=== PATIENT | male | born 1985 | race American Indian/Alaskan Native ===

== ENCOUNTER 2022-02-07 10:26 | Emergency (ER) | payer BC, MEDICAID ==
[~2022-02-07] VITALS: Ht 165.1 cm; Wt 68.2 kg
[~2022-02-07 10:26] MED LIST: NO HOME MEDS
[2022-02-07] MEDS ORDERED: vancomycin/NS 1 GM ADD-VANTAGE 250 ML IV ONE (12:10)
[2022-02-07 12:25] LABS: BASOPHILS # (AUTO) 0.1 X10'3 (0-0.2); BASOPHILS % (AUTO) 0.7 % (0-1); EOSINOPHILS % (AUTO) 0.3 % (0-6); HEMATOCRIT 42.5 % (42.0-52.0); HEMOGLOBIN 14.2 g/dl (14.0-17.9); LYMPHOCYTES % (AUTO) 12.7 % (21-51); MEAN CORPUSCULAR HGB CONC 33.3 g/dL (33.0-36.5); MEAN CORPUSCULAR VOLUME 86.9 FL (78-98); MEAN PLATELET VOLUME 7.6 FL (7.4-10.4); MONOCYTES # (AUTO) 0.7 X10'3 (0-0.9); MONOCYTES % (AUTO) 9.6 % (2-12); NEUTROPHILS # (AUTO) 5.8 X10'3 (1.8-7.7); NEUTROPHILS % (AUTO) 76.7 % (42-75); PLATELET COUNT 357 X10'3 (140-440); RED BLOOD COUNT 4.89 X10'6 (4.70-6.10); RED CELL DISTRIBUTION WIDTH 13.4 % (11.5-14.5); WHITE BLOOD COUNT 7.6 X10'3 (4.5-11.0)
[2022-02-07 12:39] LABS: ALANINE AMINOTRANSFERASE 73 U/L (12-78); ALBUMIN/GLOBULIN RATIO 1.2 (1.1-1.5); ALKALINE PHOSPHATASE 62 IU/L (46-116); ANION GAP 10 (8-16); ASPARTATE AMINO TRANSFERASE 52 U/L (10-37); BILIRUBIN,TOTAL 1.3 MG/DL (0.1-1.0); BLOOD UREA NITROGEN 14 MG/DL (7-18); BUN/CREATININE RATIO 13.2 (5.4-32.0); CHLORIDE 101 MMOL/L (99-107); CREATININE 1.06 MG/DL (0.60-1.10); ETHANOL < 0.010 GM/DL (0.0-0.010); GLUCOSE 97 MG/DL (70-104); POTASSIUM 3.9 MMOL/L (3.5-5.1); SODIUM 137 MMOL/L (135-145); TOTAL CARBON DIOXIDE 26.1 MMOL/L (24-32); TOTAL PROTEIN 7.4 G/DL (6.4-8.2); eGFR 80 ML/MIN
[2022-02-07 16:31] LABS: URINE AMPHETAMINE SCREEN POSITIVE (Neg); URINE BARBITUATE SCREEN NEGATIVE (Neg); URINE BENZODIAZEPINES SCREEN NEGATIVE (Neg); URINE CANNABINOID SCREEN POSITIVE (Neg); URINE COCAINE SCREEN NEGATIVE (Neg); URINE METHADONE SCREEN NEGATIVE (Neg); URINE OPIATE SCREEN NEGATIVE (Neg); URINE PHENCYCLIDINE SCREEN NEGATIVE (Neg)
[2022-02-07 17:01] LABS: CLARITY,URINE CLEAR (Clear); COLOR,URINE YELLOW (Yellow); GLUCOSE, URINE NEGATIVE (Neg); KETONES,URINE 40 mg/dl (Neg); LEUKOCYTE ESTERASE ,URINE NEGATIVE (Neg); NITRITES, URINE NEGATIVE (Neg); OCCULT BLOOD,URINE NEGATIVE (Neg); PROTEIN,URINE NEGATIVE (Neg); UA COLLECTION TYPE URINAL
--- NOTE | 2022-02-07 18:30 | NUR ---
Patient lying on his bed watching the nurses station. No distress noted.
--- NOTE | 2022-02-07 19:45 | NUR ---
Patient c/o mist that smells like chemicals coming through the vents. He states that he can't breathe because of this mist that is only in his bed space. Patient will not follow directions to remain in his room. Security here to help manage situation.
--- NOTE | 2022-02-07 20:45 | NUR ---
Patient again out of his room. He now complains that his bandages on foot are wet, but they are not. He is also again claiming mist coming from vents, and he is getting agitated. MD Simpson orders Ativan 2mg and Benadryl 50 mg PO. Security here again. Patient keeps playing games and playing hide and seek with the medications. He has, with security monitoring, finally swallowed all of them.
[2022-02-07] MEDS ORDERED: LORazepam 1 MG tablet PO ONE (21:00)
[2022-02-07] MEDS ORDERED: diphenhydrAMINE 25mg capsule PO ONE (21:00)
[2022-02-07] MEDS: cephalexin 250mg capsule PO SCH (21:06)
--- NOTE | 2022-02-07 21:43 | NUR ---
Patient lying quietly on his bed. He appears to be asleep. No s/sx of distress.
--- NOTE | 2022-02-08 | NUR ---
Patient sleeping in supine position. No s/sx of distress.
--- NOTE | 2022-02-08 01:53 | NUR ---
Patient sleeping on his right side. breathing unlabored. No signs of distress.
--- NOTE | 2022-02-08 03:09 | NUR ---
Patient up to the bathroom to clean himself. Now back in bed.
--- NOTE | 2022-02-08 04:18 | NUR ---
The patient appears to be sleeping
--- NOTE | 2022-02-08 05:39 | NUR ---
Patient awake for vitals. Denies needs.
[2022-02-08] MEDS ORDERED: cephalexin 250mg capsule PO ONE (06:15)
--- NOTE | 2022-02-08 10:20 | NUR ---
PT MOVED FROM RM 16 OF MAIN ER TO RM 21. PT ATE ALL OF HIS BREAKFAST AND TOOK HIS FIRST DOSE OF KEFLEX. PT STATES HES FEELING "FINE."
[2022-02-08] MEDS ORDERED: CEPH-585 PO (11:01)
--- NOTE | 2022-02-08 11:16 | NUR ---
Pt laying on right lateral side. Eyes closed, respirations even and unlabored. Received pt's discharge paperwork, awaiting transportation via pt's chief fundraising officer.
[2022-02-08] MEDS: cephalexin 250mg capsule PO SCH (11:34)
[2022-02-08 12:01] VITALS: BP 128/80
== END 2022-02-08 12:09 | disposition home or self-care (01) ==
LOC: ER 10:26
DX: R45.851 Suicidal ideations (principal); L03.115 Cellulitis of right lower limb; Z20.822 Contact with and (suspected) exposure to COVID-19; F32.A Depression, unspecified; J45.909 Unspecified asthma, uncomplicated; F12.10 Cannabis abuse, uncomplicated; F17.200 Nicotine dependence, unspecified, uncomplicated
CPT/HCPCS: 36415; 80053; 80305; 80320; 81003; 83605; 85025; 87040; 87635; 96365; 96366; 99285; C9803; J3370; Q0163

== ENCOUNTER 2022-02-12 13:40 | Inpatient (IN) | payer MEDICAID ==
[~2022-02-12] VITALS: Ht 165.1 cm; Wt 74.3 kg
[~2022-02-12 13:40] MED LIST changes: +CEPH-585 PO
[2022-02-12] MEDS ORDERED: NICOTINE POLACRILEX 2 MG LOZENGE BC PRN (15:00)
[2022-02-12] MEDS ORDERED: loperamide 2mg capsule PO PRN (15:00)
[2022-02-12] MEDS ORDERED: magnesium hydroxide 30ml (MOM) UD suspension PO PRN (15:00)
[2022-02-12] MEDS ORDERED: acetaminophen 325mg tablet PO PRN ×2 (15:00)
[2022-02-12] MEDS ORDERED: CEPH-585 PO (16:41)
--- NOTE | 2022-02-12 16:45 | NUR ---
Admit note: Pt admitted today from [facility] on for psychosis on a 5150 for DTO at 1545. Pt disclosed he is feeling pressure and like a ticking time bomb and might hurt someone. He states he doesn't care about the consequences or what happens to him. Has paranoia that people are following him. Pt has no diagnosed mental health.
[2022-02-12] MEDS: cephalexin 500mg capsule PO SCH (20:08)
[2022-02-12 20:14] VITALS: BP 120/71
[2022-02-12] MEDS: traZODone 50mg tablet PO PRN (21:31)
--- NOTE | 2022-02-13 03:55 | NUR ---
Nursing Progress Note: Problem : Pt admitted from [facility] on for psychosis on a 5150 for DTO at 1545. Pt disclosed he is feeling pressure and like a ticking time bomb and might hurt someone. He states he doesn't care about the consequences or what happens to him. Has paranoia that people are following him. Pt has no diagnosed mental health. Interventions : Maintained a safe and supportive environment, ensured contract for safety, provided clear and simple instructions, attempted to orient to reality, monitored behaviors and provided redirection as needed, and maintained Q 15nmin safety checks. Response : Patient was seen in the group room for 1:1. He reports that he's still feeling a little paranoid that people are out to get him. Patient has had a rough life of foster homes, homelessness, incarcerations, and abandonment. He has already had a lot of consequences not of his doing. It's understandable that he might do things with no thought of what happens to him. Patient reports that he doesn't know why he's here, but he still feels like something is going to happen. Patient continues to take Keflex for his wounded foot. He came out after trying to sleep and requested Trazodone, which was effective at getting him to sleep. Plan : Patient does not have a viable plan for discharge at this time. He continues to require a safe and supportive environment and medication adjustments.
[2022-02-13 07:01] LABS: CHOLESTEROL 163 MG/DL (0-200); HDL CHOLESTEROL 54 MG/DL (35-60); LDL CHOLESTEROL 87 MG/DL (50-100); TRIGLYCERIDES 91 MG/DL (20-135)
[2022-02-13 07:07] LABS: HEMOGLOBIN A1C 5.8 % (4.5-6.2)
[2022-02-13] MEDS: cephalexin 500mg capsule PO SCH ×2 (07:24→20:08)
[2022-02-13 08:05] VITALS: BP 114/50
--- NOTE | 2022-02-13 10:01 | NUR ---
Pt. attended group today. Todays group was about the difference between Growth Mindset vs. Fixed Mindset. We learned about the differences and then discussed what aspect of developing a growth mindset they wanted to work on. Pt. engaged in the group appropriately. His demeanor was calm, compliant and pleasant to work with. His thought content and thought process appeared WNL. He seemed to enjoy the socialization in the group setting. He showed good insight into his mental illness when he shared about the things he wants to work on to grow his growth mindset and the things he needs to let go of to obtain these goals. He reported that he often sabotages himself because he fears being successful. He reported that he spent much of his life trying not to rise above the radar as a way to survive. He would like to change this and work toward succeeding at something. He was alert and oriented X 4. Jesika Phillips LCSW
--- NOTE | 2022-02-13 13:24 | NUR ---
Nursing Progress Note: Problem : Pt admitted from [facility] on for psychosis on a 5150 for DTO at 1545. Pt disclosed he is feeling pressure and like a ticking time bomb and might hurt someone. He states he doesn't care about the consequences or what happens to him. Has paranoia that people are following him. Pt has no diagnosed mental health. Interventions : Maintained a safe and supportive environment, provided clear and simple instructions, monitored behaviors and provided redirection as needed, and maintained Q 15nmin safety checks. Response : Patient was seen in the group room for 1:1. He reports that he's still feeling a little paranoid that people are out to get him. Pt interacts appropriately with other pts and staff. Pt spends most of day in the group room interacting or watching TV or coloring/drawing. PT seen by hospitalist and prescribed Lamisil cream for R foot. Plan : Patient does not have a viable plan for discharge at this time. He continues to require a safe and supportive environment and medication adjustments.
[2022-02-13 20:00] VITALS: BP 111/63
[2022-02-13] MEDS: traZODone 50mg tablet PO PRN (20:08)
[2022-02-13] MEDS: terbinafine cream 30gm TP SCH (20:12)
[2022-02-13] MEDS: prazosin 1mg capsule PO SCH (20:58)
--- NOTE | 2022-02-14 02:28 | NUR ---
Nursing Progress Note: Problem : Pt admitted from [facility] for psychosis on a 5150 for DTO. Pt disclosed he is feeling pressure and like a ticking time bomb and might hurt someone. He states he doesn't care about the consequences or what happens to him. Has paranoia that people are following him. Pt has no diagnosed mental health illness. Interventions : Maintained a safe and supportive environment, ensured contract for safety, provided clear and simple instructions, attempted to orient to reality, monitored behaviors and provided redirection as needed, and maintained Q 15 min. safety checks. Response : Patient seen for 1:1 assessment in the community room. He appears clean and is maintaining his personal hygiene. Patient contracts for safety and assures he will do no harm while here. He has n/o for antifungal to his feet. He chose to administer it himself. Patient also has n/o for Prazosin due to past traumas and nightmares. He also requested Trazodone for sleep that is effective aeb sleeping at this time. Plan : Patient does not have a viable plan for discharge at this time. He continues to require a safe and supportive environment and medication adjustments.
[2022-02-14 07:30] VITALS: BP 110/50
[2022-02-14] MEDS: cephalexin 500mg capsule PO SCH ×2 (08:39→20:08)
[2022-02-14] MEDS: ESCITALOPRAM OXALATE 5 MG TABLET PO SCH (08:39)
[2022-02-14] MEDS: terbinafine cream 30gm TP SCH ×2 (08:43→20:00)
--- NOTE | 2022-02-14 15:37 | NUR ---
Nursing Progress Note: Problem : Pt admitted from [facility] on for psychosis on a 5150 for DTO at 1545. Pt disclosed he is feeling pressure and like a ticking time bomb and might hurt someone. He states he doesn't care about the consequences or what happens to him. Has paranoia that people are following him. Pt has no diagnosed mental health. Interventions : Maintained a safe and supportive environment, provided clear and simple instructions, monitored behaviors and provided redirection as needed, and maintained Q 15nmin safety checks. Response : Pt reports that he's still feeling a little paranoid that people are out to get him. Pt interacts appropriately with other pts and staff. Pt spends most of day in the group room interacting or watching TV or coloring/drawing. Plan : Patient does not have a viable plan for discharge at this time. He continues to require a safe and supportive environment and medication adjustments.
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
[2022-02-14 20:00] VITALS: BP 123/65
[2022-02-14] MEDS: QUEtiapine 25mg tablet PO SCH (20:04)
[2022-02-14] MEDS: prazosin 1mg capsule PO SCH (20:04)
[2022-02-14] MEDS: traZODone 50mg tablet PO PRN (20:12)
--- NOTE | 2022-02-15 01:54 | NUR ---
Nursing Progress Note: Problem : Pt admitted from [facility] for psychosis on a 5150 for DTO. Pt disclosed he is feeling pressure and like a ticking time bomb and might hurt someone. He states he doesn't care about the consequences or what happens to him. Has paranoia that people are following him. Pt has no diagnosed mental health illness. Interventions : Maintained a safe and supportive environment, ensured contract for safety, provided clear and simple instructions, attempted to orient to reality, monitored behaviors and provided redirection as needed, and maintained Q 15 min. safety checks. Response : Patient spent the night in the community room coloring and watching TV. He continues to report feelings that someone is after him. He starts Seroquel tonight which may help with these feelings. Patient's foot is getting better, even though he has thickly calloused skin on bottom and sides. Patient is calm and cooperative with staff and clients. Plan : Patient does not have a viable plan for discharge at this time. He continues to require a safe and supportive environment and medication adjustments.
[2022-02-15 08:00] VITALS: BP 108/63
[2022-02-15] MEDS: cephalexin 500mg capsule PO SCH ×2 (08:00→20:25)
[2022-02-15] MEDS: ESCITALOPRAM OXALATE 5 MG TABLET PO SCH (08:00)
[2022-02-15] MEDS: terbinafine cream 30gm TP SCH ×2 (08:00→20:26)
--- NOTE | 2022-02-15 11:32 | NUR ---
[facility] RE[facility] Completed and sent [facility] referral. Will check in with [facility] regarding an interview time and date. NARDA Calvert
--- NOTE | 2022-02-15 11:33 | NUR ---
Kiki, Substance Use Navigator, called [facility] and [facility] and was informed that they do not take people who are 290 registrants or arsonists. She was also informed that [facility] does not allow any of their recover programs to accept that population. NARDA Calvert
--- NOTE | 2022-02-15 16:53 | NUR ---
Nursing Progress Note: Problem : Pt admitted from [facility] for psychosis on a 5150 for DTO. Pt disclosed he is feeling pressure and like a ticking time bomb and might hurt someone. He states he doesn't care about the consequences or what happens to him. Has paranoia that people are following him. Pt has no diagnosed mental health illness. Interventions : Maintained a safe and supportive environment, ensured contract for safety, provided clear and simple instructions, attempted to orient to reality, monitored behaviors and provided redirection as needed, and maintained Q 15 min. safety checks. Response : Pt. asleep at start of shift. Pt. awoke for breakfast and took all medications. Pt. went back to sleep. Lamasil ointment applied to pt.'s foot. Pt. encouraged to shower and did so. 1:1 done at bedside, pt. denies all psych symptoms, states, "I'm good". Pt. gives minimal information during 1:1 interview. Plan : Patient does not have a viable plan for discharge at this time. He continues to require a safe and supportive environment and medication adjustments.
[2022-02-15 20:00] VITALS: BP 121/61
[2022-02-15] MEDS: QUEtiapine 25mg tablet PO SCH (20:25)
[2022-02-15] MEDS: prazosin 1mg capsule PO SCH (20:25)
[2022-02-15] MEDS: traZODone 50mg tablet PO PRN (20:36)
--- NOTE | 2022-02-16 04:46 | NUR ---
Nursing Progress Note: Problem : Pt admitted from [facility] for psychosis on a 5150 for DTO. Pt disclosed he is feeling pressure and like a ticking time bomb and might hurt someone. He states he doesn't care about the consequences or what happens to him. Has paranoia that people are following him. Pt has no diagnosed mental health illness. Interventions : Maintained a safe and supportive environment, ensured contract for safety, provided clear and simple instructions, attempted to orient to reality, monitored behaviors and provided redirection as needed, and maintained Q 15 min. safety checks. Response : Patient is visible on the unit and is cooperative and polite when interacting with staff. He is seen socializing with his roommate. Patient's foot is improving, he does report some itching, scheduled cream applied. PT denies SI/HI/AH/VH at this time. Plan : Patient does not have a viable plan for discharge at this time. He continues to require a safe and supportive environment and medication adjustments.
--- NOTE | 2022-02-16 07:19 | NUR ---
Initial: Pt admitted w/ major depressive disorder per EMR. Currently on Regular diet w/ mostly 100% intake of meals meeting needs at this time. LBM 02/15 receiving PRN bowel care. No nutrition intervention implemented at this time, will continue to monitor. Recs: 1. Continue Regular diet as tolerated 2. Bowel care PRN 3. Weekly wts Addendum: 02/16/22 at [address] Amended: Links added.
[2022-02-16 08:00] VITALS: BP 115/54
[2022-02-16] MEDS: terbinafine cream 30gm TP SCH ×2 (08:00→20:02)
--- NOTE | 2022-02-16 08:20 | NUR ---
[facility] INTERVIEW 3:30 TODAY Brody from [facility] will interview Raheel at 3:30 today. NARDA Calvert
[2022-02-16] MEDS: ESCITALOPRAM OXALATE 5 MG TABLET PO SCH (08:30)
[2022-02-16] MEDS: cephalexin 500mg capsule PO SCH ×2 (08:30→19:44)
--- NOTE | 2022-02-16 17:13 | NUR ---
Nursing Progress Note: Raheel Flor Problem: Pt admitted from [facility] for psychosis on a 5150 for DTO. Pt disclosed he is feeling pressure and like a ticking time bomb and might hurt someone. He states he doesn't care about the consequences or what happens to him. Has paranoia that people are following him. Pt has no diagnosed mental health illness. Pt. denies SI, HI, and presents as guarded during assessment. Pt. observed both isolative behavior and minimal social skills with cohorts. Interventions: Maintained a safe and supportive environment, ensured contract for safety, provided clear and simple instructions, attempted to orient to reality, monitored behaviors and provided redirection as needed. Medications administration, Tx completed per order. Response: Patient reports his plan is to check in with parole and Mental Health on [facility] when I get out He was receptive to accepting his medications and the treatment to his foot. He denies GI upset d/t on going ABX. Plan : Patient does not have a viable plan for discharge at this time. He continues to require a safe and supportive environment and medication adjustments. Maintained Q 15 min. safety checks
[2022-02-16] MEDS: QUEtiapine 25mg tablet PO SCH (19:44)
[2022-02-16] MEDS: prazosin 1mg capsule PO SCH (19:45)
[2022-02-16] MEDS: traZODone 50mg tablet PO PRN (19:55)
[2022-02-16 19:56] VITALS: BP 111/68
--- NOTE | 2022-02-17 03:50 | NUR ---
Nursing Progress Note: P: Pt was admitted to [facility] for DTO and described feeling like a ticking time bomb and felt like he might hurt someone. He was feeling paranoid and anxious. I: 1:1 assessment with pt, assess pts mood and outlook on his current situation. Monitor for any psychosis/paranoia. Administer medications as scheduled. Assess R foot. R: Pt is visible on the unit, he watched a movie in the community room with peers while eating snack. He is polite with staff and cooperative with [facility] and takes all scheduled medications. He denies SI/HI/AH/VH at this time. He states he is feeling pretty good.Pt makes good eye contact and smiles. No internal occupation observed or reported. He reports his R foot is improving, cream applied HS. Pt requests PRN trazodone for sleep which is given to him with good effect. P: Continue to monitor patients progress and prepare pt for discharge to [facility] which is scheduled tentatively for 02/21/22.
[2022-02-17] MEDS: ESCITALOPRAM OXALATE 5 MG TABLET PO SCH (07:52)
[2022-02-17] MEDS: cephalexin 500mg capsule PO SCH ×2 (07:52→20:13)
[2022-02-17 08:00] VITALS: BP 110/59
[2022-02-17] MEDS: terbinafine cream 30gm TP SCH ×2 (08:00→20:18)
--- NOTE | 2022-02-17 08:22 | NUR ---
ACCEPTED AT [facility] Called Armando at [facility] and confirmed that Raheel has been accepted. They can take him on pending a nurse to nurse (concerns about his feet). His medications will need to be finalized and send to Brennan Garvey today in order for delivery on since it is a holiday weekend. NARDA Calvert
[2022-02-17] MEDS ORDERED: ESCI-8 PO (16:05)
[2022-02-17] MEDS ORDERED: PRAZ1CAP5 PO (16:05)
[2022-02-17] MEDS ORDERED: NICO-907 BC (16:05)
[2022-02-17] MEDS ORDERED: CEPH-585 PO (16:05)
[2022-02-17] MEDS ORDERED: QUET100T34 PO (16:05)
[2022-02-17] MEDS ORDERED: TERB30CR8 TP (16:05)
[2022-02-17] MEDS ORDERED: tuberculin, purif. prot. deriv. 5 units/0.1ml ID PRN (16:05)
--- NOTE | 2022-02-17 17:34 | NUR ---
Nursing Progress Note: Raheel Flor Problem: Pt admitted from [facility] for psychosis on a 5150 for DTO. Pt disclosed he is feeling pressure and like a ticking time bomb and might hurt someone. He states he doesn't care about the consequences or what happens to him. Has paranoia that people are following him. Pt has no diagnosed mental health illness. Pt. continues to self-isolate from cohorts and engages minimally with others. Interventions: Maintained a safe and supportive environment, ensured contract for safety, provided clear and simple instructions, attempted to orient to reality, monitored behaviors and provided redirection as needed. Medications administration, Tx completed per order. Response: Pt. denies SI, HI, presents as guarded during assessment reports Im going to [facility] He was receptive to accepting his medications and the treatment to his foot. He denies GI upset d/t on going ABX. Plan : He continues to require a safe and supportive environment and medication adjustments. Maintained Q 15 min. safety checks
[2022-02-17 20:00] VITALS: BP 123/81
[2022-02-17] MEDS: QUEtiapine 25mg tablet PO SCH (20:12)
[2022-02-17] MEDS: traZODone 50mg tablet PO PRN (20:13)
[2022-02-17] MEDS: prazosin 1mg capsule PO SCH (20:13)
--- NOTE | 2022-02-18 00:05 | NUR ---
Nursing Progress Note: P: Pt was admitted to [facility] for DTO and described feeling like a ticking time bomb and felt like he might hurt someone. He was feeling paranoid and anxious. I: 1:1 assessment with pt, assess pts mood and outlook on his current situation. Monitor for any psychosis/paranoia. Administer medications as scheduled. Assess R foot. R: Pt is observed walking the unit with a smile on his face, making good eye contact with staff and peers. He engages in conversation with his roommate as they walk together, laughing at times. Pt engages with staff as well and appears to be upbeat. He denies AH/VH/SI/HI. Right foot continues to improve pt reports, cream applied HS. Pt requests PRN trazodone for sleep which is given to him with good effect. P: Continue to monitor patients progress and prepare pt for discharge to [facility] which is scheduled tentatively for 02/21/22.
[2022-02-18] MEDS: terbinafine cream 30gm TP SCH ×2 (08:00→20:50)
[2022-02-18] MEDS: ESCITALOPRAM OXALATE 5 MG TABLET PO SCH (08:18)
[2022-02-18 08:43] VITALS: BP 107/59
--- NOTE | 2022-02-18 17:10 | NUR ---
Nursing Progress Note: Problem: Patient is admitted to [facility] with Suicidal, with Depression and PTSD. Patient is currently here on a Voluntary basis due to Danger to Others. During a Patient Interview, he states Im trying to not make the same mistakes over and over, so Im staying here to get on the right track. Patient watched TV in the Community Room Intervention: Patient Assessment and 1:1 Physical Assessment completed. Provider continues to provide patient with a safe and therapeutic environment, clear communication, active listening and positive encouragement. Response: Patient ambulated in the hallway and sat up in the Community Room watching the TV. Patient ate his meals, and ate snacks at 1100 & 1500. Patient took medications without hesitation, and received Lamisal application to his right foot. Patient states My foot looks so much better than a week ago. Patient has a large area of cracked dry skin on the bottom of his right foot, and has cracked dry areas between his toes and in the joints of his toes. Plan: Plan is for patient to discharge to [facility] on Sunday. Patient will continue with medication management and monitoring in a safe & therapeutic environment.
[2022-02-18 19:55] VITALS: BP 115/58
[2022-02-18] MEDS: QUEtiapine 25mg tablet PO SCH (20:46)
[2022-02-18] MEDS: prazosin 1mg capsule PO SCH (20:46)
[2022-02-18] MEDS: traZODone 50mg tablet PO PRN (20:47)
--- NOTE | 2022-02-19 01:26 | NUR ---
Nursing Progress Note: Problem: Patient is admitted to [facility] with Suicidal, with Depression and PTSD. Patient is currently here on a Voluntary basis due to Danger to Others. During a Patient Interview, he states Im trying to not make the same mistakes over and over, so Im staying here to get on the right track. Intervention: Patient Assessment and 1:1 Physical Assessment completed. Provider continues to provide patient with a safe and therapeutic environment, clear communication, active listening and positive encouragement. Response: Pt in Rec room charging his ankle bracelet and playing cards with another pt at start of shift. Pt denies all MH symptoms. Pleasant and cooperative with care. Pt is aware of plan to DC to the [facility] he is hoping they will help him to find a place to live he has been homeless. [place] cream applied to right foot Thick callouses with deep cracks. Plan: Plan is for patient to discharge to [facility] on Sunday. Patient will continue with medication management and monitoring in a safe & therapeutic environment.
[2022-02-19] MEDS: ESCITALOPRAM OXALATE 5 MG TABLET PO SCH (07:56)
[2022-02-19 08:00] VITALS: BP 112/44
[2022-02-19] MEDS: terbinafine cream 30gm TP SCH ×2 (08:00→20:19)
[2022-02-19] MEDS: mag hydrox/Alum hydrox/simeth 30ml oral suspension PO PRN (14:53)
--- NOTE | 2022-02-19 15:41 | NUR ---
Nursing Progress Note: Problem: Patient is admitted to [facility] with Suicidal, with Depression and PTSD, altered thoughts and Paranoia on 02/12/22. Patient is currently here on a Voluntary basis due to Danger to Others. Intervention: Patient Assessment and 1:1 Physical Assessment completed. Provider continues to provide patient with a safe and therapeutic environment, clear communication, active listening and positive encouragement. Response: Patient is calm and pleasant. Patient has ankle monitor that was plugged in to recharge during this shift. Patient is looking forward to discharge to [facility] on Sunday. Patient informs Lauren got to get on with my life and do the right thing. Patient taking medications without hesitation. Wound care provided to the patients right foot. Cellulitis on the bottom of his right foot appears much improved since yesterday. Wound on the bottom of his foot and on the posterior back of patients toes on his right foot also have skin removal. Applied Lamisal and a clean sock. Plan: Plan is for patient to discharge to [facility] on Sunday (no time yet available). Patient will continue with medication management and monitoring in a safe & therapeutic environment. Wound pictures will need to be taken on 02/20 (-Day of Discharge). Patients discharge prescriptions will be delivered on Sunday by Brennan HARRINGTON and placed in the [facility] when received.
[2022-02-19 19:36] VITALS: BP 108/67
[2022-02-19] MEDS: QUEtiapine 25mg tablet PO SCH (20:13)
[2022-02-19] MEDS: prazosin 1mg capsule PO SCH (20:14)
[2022-02-19] MEDS: traZODone 50mg tablet PO PRN (20:17)
--- NOTE | 2022-02-20 02:27 | NUR ---
Nursing Progress Note: Problem: Patient is admitted to [facility] with Suicidal, with Depression and PTSD, altered thoughts and Paranoia on 02/12/22. Patient is currently here on a Voluntary basis due to Danger to Others. Intervention: Patient Assessment and 1:1 Physical Assessment completed. Provided patient with a safe and therapeutic environment, clear communication, active listening and positive encouragement. Response: Patient is calm and pleasant. Took all medications, Patient is looking forward to discharge to [facility] on Sunday. He interacted pleasantly with staff and other pts. Took a shower. Ankle monitor charged, Plan: Plan is for patient to discharge to [facility] on Sunday (no time yet available). Patient will continue with medication management and monitoring in a safe & therapeutic environment. Wound pictures will need to be taken on 02/20 (-Day of Discharge). Patients discharge prescriptions will be delivered on Sunday by Brennan HARRINGTON and placed in the [facility] when received.
[2022-02-20] MEDS: ESCITALOPRAM OXALATE 5 MG TABLET PO SCH (07:56)
[2022-02-20 08:00] VITALS: BP 94/56
[2022-02-20] MEDS: terbinafine cream 30gm TP SCH ×2 (08:00→20:12)
[2022-02-20] MEDS: mag hydrox/Alum hydrox/simeth 30ml oral suspension PO PRN ×2 (10:54→17:07)
--- NOTE | 2022-02-20 13:45 | NUR ---
Patient received Mylanta this morning after breakfast, and c/o indigestion. At approximately 1340 patient approached in the hallway and lifted his shirt on the right side and pointed directly to an area on his abdomen that he stated had been very painful for the past 2-3 days. Patient reports "I didn't want to say anything to you because I am afraid I would have to stay here longer and not go to the [facility] tomorrow." Patient rated his RLQ pain at a "5-6" on a scale of 1-10. Patient kept stating "It really hurts." Informed the patient that I would contact Dr. Bailey. Patient then said that Dr. Bailey was just here but I didn't tell him either. Informed Alea inspector floor sub assembly of patient's complaint and then paged Dr. Bailey at 1350 to inform him of patient's complaint.
--- NOTE | 2022-02-20 17:15 | NUR ---
Nursing Progress Note: Problem: Patient was admitted to [facility] with Suicidal, with Depression and PTSD, altered thoughts and Paranoia on 02/12/22. Patient is currently here on a Voluntary basis due to Danger to Others. Patient is pleasant and cooperative with peers and staff members. Intervention: Patient Assessment and 1:1 Physical Assessment completed. Provider continues to provide patient with a safe and therapeutic environment, clear communication, active listening and positive encouragement. Patient will be discharging to [facility] tomorrow morning. Chest X-ray ordered at 0745 this morning, which resulted in Minimal asymmetric edema. No pneumothorax. Bibasilar atelectasis. Response: (0745) At 0745 patient woke up for breakfast and came out of his room to the Dining Room. Patient states Im doing pretty well today. Patient ambulated to the dining room and sat down near his roommate to eat breakfast. Medications were administered without hesitation. While patient was waiting for breakfast Radiology arrived to [facility] to take his CXR. The CXR was required before his transfer tomorrow to the [facility]. Patient returned back to breakfast and ate 100% of his breakfast. At approximately 1045 the patient informed that he felt as if he was having some indigestion and pointed to his abdomen. Patient was given Maalox 30ml. Patient ambulated frequently in the hospital after receiving the Maalox. When asked if the Maalox relieved his indigestion, the patient then informed that he had been having RLQ pain for the past few days, and his pain was rated at 5/6 on a scale of 1 to 10. Patient reported routine normal bowel movements every day that he has been here, and had have a regular bowel movement this morning. Dr. Bailey was paged at 1345. No return page received from Dr. Bailey. Alea placed a page to MOISES Beasley, and received an order for a KUB at 1700. KUB orders entered. Maalox given per patient request at 1705. Second exam of patients abdomen showed increased rebounding and increased pain at 1715 as compared to earlier this morning. Reported abdominal assessment to Bear Cosby RN. Radiology arrived to complete KUB at 1720. Plan: Follow up with Physician Intervention required for patients complaint this afternoon of pain in his RLQ for the past 2-3 days. Ankle monitor charged x 1.5 hours and charging cord placed in plastic bag and placed in the office. Plan is for patient to discharge to [facility] on Sunday, 02/21, (no time yet available). Patient will continue with medication management and monitoring in a safe & therapeutic environment. Wound pictures will need to be taken on 02/20 (-Day of Discharge). Patients discharge prescriptions will be delivered on Sunday by Brennan HARRINGTON and placed in the [facility] when received. Send copy of CXR results.
[2022-02-20 19:34] VITALS: BP 123/63
[2022-02-20] MEDS: prazosin 1mg capsule PO SCH (20:11)
[2022-02-20] MEDS: QUEtiapine 25mg tablet PO SCH (20:12)
[2022-02-20] MEDS: traZODone 50mg tablet PO PRN (20:18)
--- NOTE | 2022-02-21 01:36 | NUR ---
Nursing Progress Note: Problem: Patient is admitted to [facility] Suicidal, with Depression and PTSD, altered thoughts and Paranoia on 02/12/22. Patient is currently here on a Voluntary basis due to Danger to Others. Intervention: Patient Assessment and 1:1 Physical Assessment completed. Provided patient with a safe and therapeutic environment, clear communication, active listening and positive encouragement. KUB for c/o abd pain negative for obstruction. Response: Pt up in Rec room watching TV at start of shift. C/o LLQ abd pain pt rated 6 KUB for c/o abd pain negative for obstruction. Patient is calm and pleasant. Took all medications, Looking forward to discharge to [facility] on Sunday. He interacted pleasantly with staff and other pts. Ankle monitor charged, Plan: Plan is for patient to discharge to [facility] on Sunday (no time yet available). Patient will continue with medication management and monitoring in a safe & therapeutic environment. Wound pictures will need to be taken on 02/20 (-Day of Discharge). Patients discharge prescriptions will be delivered on Sunday by Brennan HARRINGTON and placed in the [facility] when received.
[2022-02-21] MEDS: ESCITALOPRAM OXALATE 5 MG TABLET PO SCH (07:36)
[2022-02-21] MEDS: terbinafine cream 30gm TP SCH ×2 (07:36→20:09)
[2022-02-21 08:00] VITALS: BP 129/77
[2022-02-21] MEDS: mag hydrox/Alum hydrox/simeth 30ml oral suspension PO PRN (10:19)
--- NOTE | 2022-02-21 11:17 | NUR ---
DC Presenting Issues: Pt's scheduled to d/c & transition to [facility] today, [facility] DCP sent called and informed clinician that [facility] could not admit pt today but will do so tomorrow. Interventions: Clinician met w/pt and informed him of hussein in dcp, pt was understanding and took the news well. Care team informed. Plan: Pt to d/c tomorrow and transition to [facility]. Kailey Aviles LCSW Addendum: 02/21/22 at 1123 by Kailey Aviles SS Amended: Links added.
--- NOTE | 2022-02-21 11:23 | NUR ---
Nursing Progress Note: Raheel Problem: Admitted from [facility] on for psychosis on a 5150 for DTO. Pt disclosed he is feeling pressure and like a ticking time bomb and might hurt someone. He states he doesn't care about the consequences or what happens to him. Has paranoia that people are following him. Pt has no diagnosed mental health. Intervention: Medication given as ordered. Provided with a safe and therapeutic environment, clear communication, active listening and positive encouragement. Response: Medication administered as ordered with no adverse effects observed. Patient spends time socializing on the unit and is pleasant/ cooperative. Eats meals in the community room and interacts appropriately with staff and peers. [facility] but has been rescheduled for tomorrow due to staffing issues at the [facility]. Plan: Patient has been accepted to the [facility] and is expected to discharge there on 02/22.
[2022-02-21 19:44] VITALS: BP 105/65
[2022-02-21] MEDS: QUEtiapine 25mg tablet PO SCH (20:08)
[2022-02-21] MEDS: traZODone 50mg tablet PO PRN (20:13)
[2022-02-21 21:40] VITALS: BP 123/67
[2022-02-21] MEDS: prazosin 1mg capsule PO SCH (21:50)
--- NOTE | 2022-02-21 22:21 | NUR ---
Nursing Progress Note: Raheel Problem: Admitted from [facility] on for psychosis on a 5150 for DTO. Pt disclosed he is feeling pressure and like a ticking time bomb and might hurt someone. He states he doesn't care about the consequences or what happens to him. Has paranoia that people are following him. Pt has no diagnosed mental health. Intervention: Medication given as ordered. pt requested prn for sleep, trazodone provided at HS. Provided with a safe and therapeutic environment, clear communication, active listening and positive encouragement. Response: Pt spent evening socializing with peers, had snack in the group room then went to bed. Pt appears to be resting comfortably. Plan: Patient has been accepted to the [facility] and is expected to discharge there on 02/22.
[2022-02-22] MEDS: terbinafine cream 30gm TP SCH (07:09)
[2022-02-22] MEDS: ESCITALOPRAM OXALATE 5 MG TABLET PO SCH (07:09)
[2022-02-22 07:31] VITALS: BP 103/50
--- NOTE | 2022-02-22 16:32 | NUR ---
Discharge Note: Follow up plan reviewed with the patient who is agreeable to discharge to the [facility]. No s/sx acute distress noted. Escorted off the unit by staff with all of his belongings and medications at 14:05 and is picked up by the [facility] truck driver salesperson. Discharged with the following instructions: Follow-Up: Patient has been scheduled/referred to the following providers for post-hospital discharge and aftercare treatment. Psychiatrist: Walk-in at [facility] Sun-Sun 8:30 AM-3:[address] [place]: Agent Maricarmen Phone# [phone] Therapist: It is recommended that you follow up with a therapist. Discharge Address: [facility] [address] [place] [address] Transportation: [facility] staff Patient given community crisis services information and National suicide hotline handout. Resources for education regarding mental illness: [address] [address] For urgent mental health crisis needs please contact Mobile Crisis Outreach Team Sunday through Sunday 8:30am to 5:00pm. . Mobile Crisis Outreach Team [address] [place] [id number] Urgent Out-patient Mental Health Services 365 Days A Year: [address] [address] Hours: Mon thru Fri 12pm-9pm Weekends 11am-9pm
== END 2022-02-22 14:05 | DRG 751 ==
LOC: ADULT MH 13:40
PROVIDERS: ADMIT Psychiatry & Neurology Psychiatry; ATTEND Psychiatry & Neurology Psychiatry
DX: F33.2 Major depressive disorder, recurrent severe without psychotic features (principal); R45.851 Suicidal ideations; L03.115 Cellulitis of right lower limb; F19.10 Other psychoactive substance abuse, uncomplicated; F17.210 Nicotine dependence, cigarettes, uncomplicated; Z20.822 Contact with and (suspected) exposure to COVID-19; F43.12 Post-traumatic stress disorder, chronic; F51.5 Nightmare disorder; Z59.00 Homelessness unspecified; Z65.3 Problems related to other legal circumstances; Z79.899 Other long term (current) drug therapy; Z56.0 Unemployment, unspecified; Z71.6 Tobacco abuse counseling
CPT/HCPCS: 36415; 71045; 74018; 80061; 83036; 87081